=== PATIENT | female | born 1980 | race Hispanic/Latino ===

== ENCOUNTER 2017-11-24 00:52 | Emergency (ER) | payer OTHER ==
[2017-11-24 01:01] VITALS: BP 108/73; PULSE 98; RESP 16; TEMP 98.9; O2SAT 96
[2017-11-24] MEDS ORDERED: Povidone Iodine Oint 10% Foilpak UD ONE (03:30)
--- NOTE | 2017-11-24 03:47 | ED PDOC ---
HPI: General Adult Time Seen by Provider: 11/24/17 02:49 Chief Complaint (Nursing): Finger,Hand,&Wrist Chief Complaint (Provider): Right thumb pain, redness History Per: Patient History/Exam Limitations: no limitations Onset/Duration Of Symptoms: Days (3) Have you had recent travel within the past 21 days to any of the following countries: [place], [place], [place] or [place]?: No Current Symptoms Are (Timing): Still Present Severity: Moderate Pain Scale Rating Of: 5 Additional Complaint(s): Pt states 3 days ago she picked off a piece of cuticle off the thumb and shortly are it became sore. Pt states it then began to swell at the cuticle. No similar in the past. Pt has had fever from influenza and is currently taking tamiflu. Past Medical History Reviewed: Historical Data, Nursing Documentation, Vital Signs Vital Signs: Last Vital Signs Temp 98.9 F 11/24/17 00:59 Pulse 98 H 11/24/17 00:59 Resp 16 11/24/17 00:59 BP 108/73 11/24/17 00:59 Pulse Ox 96 11/24/17 03:57 - Medical History PMH: No Chronic Diseases - Surgical History Surgical History: No Surg Hx - Family History Family History: States: No Known Family Hx - Living Arrangements Living Arrangements: With Family - Home Medications Home Medications: Ambulatory Orders Medication Instructions Recorded Cephalexin [Keflex] 500 mg PO BID #14 capsule 11/24/17 - Allergies Allergies/Adverse Reactions: Allergies Allergy/AdvReac Type Severity Reaction Status Date / Time No Known Allergies Allergy Verified 11/24/17 00:58 Review of Systems ROS Statement: Except As Marked, All Systems Reviewed And Found Negative Constitutional: Positive for: Fever Skin: Positive for: Other Physical Exam - Reviewed Nursing Documentation Reviewed: Yes Vital Signs Reviewed: Yes - Physical Exam Appears: Positive for: Well, Non-toxic, No Acute Distress Head Exam: Positive for: ATRAUMATIC, NORMAL INSPECTION, NORMOCEPHALIC Skin: Positive for: Warm. Negative for: Normal Color (Pus filled vesicle, right thumb nail fold and base ) Eye Exam: Positive for: Normal appearance ENT: Positive for: Normal ENT Inspection Neck: Positive for: Normal, Painless ROM Respiratory: Negative for: Accessory Muscle Use, Respiratory Distress Back: Positive for: Normal Inspection Extremity: Positive for: Normal ROM Neurologic/Psych: Positive for: Alert, Oriented - ECG O2 Sat by Pulse Oximetry: 96 Medical Decision Making Medical Decision Making: Area cleaned with betadine. #11 blade used to make incision at base of cuticle, pus drained. Disposition - Clinical Impression Clinical Impression: Acute paronychia of thumb - Patient ED Disposition Is Patient to be Admitted: No - Disposition Referrals: Hector Thurman MD [Primary Care Provider] - Disposition: Routine/Home Disposition Time: 03:41 Condition: GOOD Prescriptions: Cephalexin [Keflex] 500 mg PO BID #14 capsule Instructions: Paronychia (ED) Forms: [employer] (Romanian)
== END 2017-11-24 04:00 | disposition home or self-care (01) ==
LOC: H.ER 00:52
DX: L03.011 Cellulitis of right finger (principal)